=== PATIENT | female | born 1930 | race Caucasian/White ===

== ENCOUNTER → 2016-07-28 | Outpatient (CLI) | payer MEDICARE ==
[~2016-07-28] MED LIST: ACET1TAB19 PO; ASPI-611 PO; CALC-495 PO; DIPH25CA84 PO; FENO160T9 PO; LOSA25TA34 PO; ROSU10TA13 PO; SITA1TAB4 PO; UBID200C8 PO
== END ==
LOC: WC.BC 07:52
DX: Z12.31 Encounter for screening mammogram for malignant neoplasm of breast (principal)
CPT/HCPCS: 77063; G0202